=== PATIENT | male | born 1970 | race Two or more races ===

== ENCOUNTER 2025-03-17 11:15 | Inpatient (IN) | payer OTHER ==
[~2025-03-17] VITALS: Ht 177.8 cm; Wt 72.6 kg
[2025-03-17] MEDS ORDERED: TOUJEO SOL300 UNIT/1 (13:30)
[2025-03-17] MEDS ORDERED: HUMALOG (13:30)
[2025-03-17] MEDS ORDERED: CRESTOR 20MG (13:30)
[2025-03-17 13:42] LABS: INR 1.0
[2025-03-23] MEDS ORDERED: ROSUVASTATIN CA20 MG (10:33)
[2025-03-23] MEDS ORDERED: HUMALOG100 UNIT/2 (10:35)
[2025-03-23] MEDS ORDERED: CEFTRIAXONE SODIUM 2,000 MG VIAL IV ONE (13:15)
[2025-03-23] MEDS ORDERED: METRONIDAZOLE/SODIUM CHLORIDE 500 MG/100 ML PIGGYBACK IV ONE (13:15)
[2025-03-23] MEDS ORDERED: BUPIVACAINE HCL 30 ML VIAL IJ ONE (13:15)
[2025-03-23] MEDS ORDERED: OxyCODONE HCL 5 MG TABLET (ROXICODONE) PO PRN (14:15)
[2025-03-23] MEDS ORDERED: 0.9 % SODIUM CHLORIDE 1,000 ML IV SCH (14:15)
[2025-03-23] MEDS ORDERED: ONDANSETRON HCL 2 MG/ML VIAL IV PRN (14:15)
[2025-03-23] MEDS ORDERED: DEXTROSE 50 % IN WATER 0.5 G/ML VIAL IV PRN ×2 (14:15→16:00)
[2025-03-23] MEDS ORDERED: MORPHINE SULFATE 4 MG/ML CARTRIDGE IV PRN (14:15)
[2025-03-23] MEDS ORDERED: SURGIFLO APPLICATOR 1 EACH APPL TOP ONE (14:30)
[2025-03-23] MEDS ORDERED: SUGAMMADEX SODIUM 200 MG/2 ML VIAL IV ONE (14:30)
[2025-03-23] MEDS ORDERED: HEMOSTATIC MATRIX 1 KIT KIT TOP ONE (14:30)
[2025-03-23] MEDS ORDERED: MORPHINE SULFATE 4 MG/ML VIAL IV ONE ×2 (15:15→16:45)
[2025-03-23] MEDS ORDERED: INSULIN LISPRO 1,000 UNIT/10 ML UNITS SUBCUTANEO PRN (16:00)
[2025-03-23] MEDS ORDERED: METRONIDAZOLE/SODIUM CHLORIDE 500 MG/100 ML PIGGYBACK IV SCH (17:00)
[2025-03-23] MEDS ORDERED: HYOSCYAMINE SULFATE 0.125 MG TAB.SUBL SL SCH (17:00)
[2025-03-23] MEDS ORDERED: GABAPENTIN 300 MG CAPSULE PO SCH (17:00)
[2025-03-23 19:26] LABS: BASO % 0.2 % (0.1-1.2); EOS # 0.01 (0.04-0.54); EOS % 0.1 % (0.7-7.0); LYMPH # 0.53 (1.18-3.74); LYMPH % 3.6 % (19.3-53.1); MEAN PLATELET VOLUME 10.80 fl (9.4-12.4); MONO # 0.67 (0.24-0.82); MONO % 4.6 % (4.7-12.5); NEUT # 13.25 (1.56-6.13); NEUT % 91.2 % (34.0-71.1); RED CELL DISTRIBUTION WIDTH 11.9 % (11.6-14.4)
[2025-03-23 19:51] LABS: BUN CREA RATIO 15.0 (7.0-25.0); CREATININE SERUM 0.82 mg/dL (0.70-1.30); GFR 97.54
[2025-03-23 20:00] VITALS: BP 160/72; O2SAT 99
[2025-03-23] MEDS ORDERED: ACETAMINOPHEN 500 MG GEL..CAP PO SCH (20:00)
[2025-03-23 20:10] LABS: OSMOLALITY SERUM 282.0 MOSM/KG (275-295)
[2025-03-23 20:12] LABS: GLUCOSE FASTING 216.0 mg/dL (65-100)
[2025-03-23] MEDS ORDERED: MAGNESIUM SULFATE IN WATER 50 ML IV ONE (20:30)
[2025-03-23] MEDS ORDERED: POTASSIUM PHOS,M-BASIC-D-BASIC 3 MM/ML VIAL IV ONE (20:30)
[2025-03-23] MEDS ORDERED: CELECOXIB 200 MG CAPSULE PO SCH (21:00)
[2025-03-23] MEDS ORDERED: FAMOTIDINE/PF 20 MG/2 ML VIAL IV PUSH SCH (21:00)
[2025-03-24 02:02] VITALS: BP 138/73; O2SAT 100
[2025-03-24 06:51] LABS: BASO % 0.2 % (0.1-1.2); EOS # 0.00 (0.04-0.54); EOS % 0.0 % (0.7-7.0); LYMPH # 0.56 (1.18-3.74); LYMPH % 5.2 % (19.3-53.1); MEAN PLATELET VOLUME 10.80 fl (9.4-12.4); MONO # 0.58 (0.24-0.82); MONO % 5.4 % (4.7-12.5); NEUT # 9.64 (1.56-6.13); NEUT % 88.9 % (34.0-71.1); RED CELL DISTRIBUTION WIDTH 12.3 % (11.6-14.4)
[2025-03-24 08:00] VITALS: BP 135/76; O2SAT 99
[2025-03-24 08:28] LABS: BUN CREA RATIO 14.0 (7.0-25.0); CREATININE SERUM 0.78 mg/dL (0.70-1.30); GFR 103.34; GLUCOSE FASTING 161.0 mg/dL (65-100); OSMOLALITY SERUM 280.0 MOSM/KG (275-295)
[2025-03-24 16:00] VITALS: BP 119/63; O2SAT 95
[2025-03-24] MEDS ORDERED: ROSUVASTATIN CALCIUM 20 MG TABLET PO SCH (17:00)
[2025-03-24] MEDS ORDERED: ENOXAPARIN SODIUM 40 MG/0.4 ML SYRINGE SUBCUTANEO SCH (17:00)
[2025-03-25 00:54] VITALS: BP 101/67; O2SAT 97
[2025-03-25 07:13] LABS: BASO % 0.6 % (0.1-1.2); EOS # 0.17 (0.04-0.54); EOS % 2.5 % (0.7-7.0); LYMPH # 1.21 (1.18-3.74); LYMPH % 17.5 % (19.3-53.1); MEAN PLATELET VOLUME 10.80 fl (9.4-12.4); MONO # 0.40 (0.24-0.82); MONO % 5.8 % (4.7-12.5); NEUT # 5.08 (1.56-6.13); NEUT % 73.3 % (34.0-71.1); RED CELL DISTRIBUTION WIDTH 12.6 % (11.6-14.4)
[2025-03-25 07:51] LABS: BUN CREA RATIO 14.0 (7.0-25.0); CREATININE SERUM 0.8 mg/dL (0.70-1.30); GFR 100.36; GLUCOSE FASTING 129.0 mg/dL (65-100); OSMOLALITY SERUM 286.0 MOSM/KG (275-295)
[2025-03-25] MEDS ORDERED: ENOXAPARIN SODIUM 40 MG/0.4 ML SYRINGE SUBCUTANEO SCH (09:00)
[2025-03-25] MEDS ORDERED: POTASSIUM PHOS,M-BASIC-D-BASIC 3 MM/ML VIAL IV NR (10:15)
[2025-03-25 10:20] VITALS: BP 164/79; O2SAT 98
[2025-03-25 16:00] VITALS: BP 130/71; O2SAT 98
[2025-03-26 02:18] VITALS: BP 107/68; O2SAT 100
[2025-03-26 08:00] VITALS: BP 158/81; O2SAT 99
[2025-03-26] MEDS ORDERED: PEPCID AC20 MG PO (11:37)
[2025-03-26] MEDS ORDERED: TRAM1TAB98 PO (11:37)
[2025-03-26] MEDS ORDERED: HYOSCYAMINE0.125 M1 SL (11:37)
== END 2025-03-26 14:29 | disposition home or self-care (01) | DRG 331 ==
LOC: O/R 03-23 05:51 → SURH 03-23 10:15
PROVIDERS: Internal Medicine Geriatric Medicine; ADMIT Surgery; ATTEND Surgery
PROC: 07BB4ZZ Excision of Mesenteric Lymphatic, Percutaneous Endoscopic Approach (ICD-10-PCS; 2025-03-23)
PROC: 0DTF4ZZ Resection of Right Large Intestine, Percutaneous Endoscopic Approach (ICD-10-PCS; principal; 2025-03-23 10:15)
DX: D12.2 Benign neoplasm of ascending colon (principal); E11.69 Type 2 diabetes mellitus with other specified complication; E78.5 Hyperlipidemia, unspecified

== ENCOUNTER 2025-03-17 12:41 | Outpatient (CLI) | payer OTHER ==
[2025-03-17] MEDS ORDERED: HUMALOG (13:30)
[2025-03-17] MEDS ORDERED: TOUJEO SOL300 UNIT/1 (13:30)
[2025-03-17] MEDS ORDERED: CRESTOR 20MG (13:30)
== END 2025-03-17 12:54 | disposition home or self-care (01) ==
LOC: CIR.AMB 12:41 → LAB 12:41 → CIR.AMB 12:54
PROVIDERS: ATTEND Surgery
DX: Z00.00 Encounter for general adult medical examination without abnormal findings (principal)